=== PATIENT | male | born 1995 | race Caucasian/White ===

== ENCOUNTER 2017-06-02 18:50 | Emergency (ER) | payer OTHER ==
[~2017-06-02] VITALS: Ht 175.3 cm; Wt 136.4 kg
[2017-06-02 19:46] LABS: EOS # 0.2 (0.04-0.40); EOS % 2.6 % (0.0-4.0); HEMATOCRIT 43.8 % (36.0-47.0); HEMOGLOBIN 14.5 g/dL (12.5-16.1); LYMPH# 2.5 (1.50-4.00); MEAN CELL VOLUME 87 fl (78-95); MEAN CORPUSCULAR HEMOGLOBIN 29 pg (26-32); MEAN CORPUSCULAR HGB CONC 33 g/dL (33-37); MONO # 0.8 (0.20-0.80); NEU # 4.5 (1.40-6.50); PLATELET COUNT 188 K/mm3 (130-400); RED BLOOD COUNT 5.01 M/mm3 (4.20-5.60); RED CELL DISTRIBUTION WIDTH 12.3 % (11.5-14.5)
[2017-06-02 19:50] LABS: MEAN PLATELET VOLUME 12.1 fl (7.4-10.4)
[2017-06-02 19:57] LABS: ALBUMIN 4.2 g/dL (3.5-5.0); BUN/CREATININE RATIO 14.4 (6.0-26.0); CALCIUM 9.5 mg/dL (8.4-10.2); POTASSIUM 4.5 mmol/L (3.6-5.0); TOTAL BILIRUBIN 0.4 mg/dL (0.2-1.3); TOTAL PROTEIN 7.8 g/dL (6.3-8.2)
[2017-06-02 20:04] LABS: CKMB ISOENZYME 1.4 ng/mL (0.6-3.5)
[2017-06-02 20:06] LABS: D-DIMER 0.11 mg/L FEU (0.15-0.50)
[2017-06-02 20:07] LABS: TROPONIN-I < 0.03 ng/mL (0.00-0.06)
[2017-06-02 20:54] VITALS: BP 108/53
== END 2017-06-02 20:54 | disposition home or self-care (01) ==
LOC: ED 18:50
PROVIDERS: Nurse Practitioner Primary Care
DX: K21.9 Gastro-esophageal reflux disease without esophagitis (principal); R07.89 Other chest pain

== ENCOUNTER 2017-09-12 00:09 | Emergency (ER) | payer OTHER ==
[~2017-09-12] VITALS: Ht 177.8 cm; Wt 136.4 kg
[2017-09-12 01:06] LABS: HEMATOCRIT 38.4 % (36.0-47.0); HEMOGLOBIN 12.9 g/dL (12.5-16.1); MEAN CELL VOLUME 87 fl (78-95); MEAN CORPUSCULAR HEMOGLOBIN 29 pg (26-32); MEAN CORPUSCULAR HGB CONC 34 g/dL (33-37); MEAN PLATELET VOLUME 11.5 fl (7.4-10.4); PLATELET COUNT 135 K/mm3 (130-400); RED BLOOD COUNT 4.43 M/mm3 (4.20-5.60); RED CELL DISTRIBUTION WIDTH 12.6 % (11.5-14.5)
[2017-09-12 01:10] LABS: ALBUMIN 3.7 g/dL (3.5-5.0); BUN/CREATININE RATIO 14.7 (6.0-26.0); CALCIUM 8.7 mg/dL (8.4-10.2); TOTAL BILIRUBIN 0.8 mg/dL (0.2-1.3); TOTAL PROTEIN 7.5 g/dL (6.3-8.2)
[2017-09-12 01:20] LABS: BAND 2 % (0-10); NEUTROPHILS 43 % (42-75)
[2017-09-12 01:21] LABS: LYMPHOCYTE 38 % (20-51); MONOCYTE 16 % (1-10)
[2017-09-12] MEDS ORDERED: ZOFRAN ODT4 MG PO (02:36)
[2017-09-12 02:46] VITALS: BP 129/74
== END 2017-09-12 02:46 | disposition home or self-care (01) ==
LOC: ED 00:09
PROVIDERS: Nurse Practitioner Primary Care
DX: G43.909 Migraine, unspecified, not intractable, without status migrainosus (principal); M54.2 Cervicalgia
CPT/HCPCS: J1200; J1885; J2405